=== PATIENT | female | born 1965 | race Caucasian/White ===

== ENCOUNTER → 2017-11-18 | Outpatient (CLI) | payer BC | LOC: GMAJ 15:50 | PROVIDERS: ATTEND Family Medicine | DX: D51.3 Other dietary vitamin B12 deficiency anemia (principal); D64.9 Anemia, unspecified ==

== ENCOUNTER → 2018-01-06 | Outpatient (CLI) | payer BC | LOC: LAB.O 10:24 | PROVIDERS: ATTEND Internal Medicine Gastroenterology | DX: D50.9 Iron deficiency anemia, unspecified (principal) ==

== ENCOUNTER → 2018-11-25 | Outpatient (CLI) | payer BC | LOC: GMAJS 15:15 | PROVIDERS: ATTEND Physician Assistant | DX: D51.3 Other dietary vitamin B12 deficiency anemia (principal); R29.898 Other symptoms and signs involving the musculoskeletal system; E11.9 Type 2 diabetes mellitus without complications ==

== ENCOUNTER → 2019-08-09 | Outpatient (CLI) | payer BC | LOC: GMAJ 14:28 | PROVIDERS: ATTEND Family Medicine | DX: R94.5 Abnormal results of liver function studies (principal); E78.2 Mixed hyperlipidemia; E11.9 Type 2 diabetes mellitus without complications ==